=== PATIENT | female | born 1995 | race Two or more races ===

== ENCOUNTER 2019-12-07 11:44 | Emergency (ER) | payer OTHER ==
[~2019-12-07] VITALS: Ht 154.9 cm; Wt 80.7 kg
--- NOTE | 2019-12-07 12:08 | NUR ---
ED Nurse Note: pt presents to ED c/o L hand and wrist pain x 3 days ago at work. pt states that she was trying to catch a heavy object and "heard her wrist crack." pt has full ROM of L wrist, pain is exacerbated by making a closed fist with her hand
[2019-12-07 12:10] VITALS: BP 124/77
[2019-12-07] MEDS ORDERED: TYLENOL EXTRA500 MG ORAL (13:18)
[2019-12-07 13:38] VITALS: BP 128/76
--- NOTE | 2019-12-07 13:38 | NUR ---
ER DISCHARGE NOTE: Patient is cleared to be discharged per ERMD, pt is aox4, on room air, with stable vital signs. pt was given dc and prescription instructions, pt was able to verbalize understanding, pt id band removed. pt is able to ambulate with steady gait. pt took all belongings.
--- NOTE | 2019-12-07 14:14 | Diagnostic Imaging Report ---
EXAM: XR Left Wrist, 2 Views CLINICAL HISTORY: PAIN TECHNIQUE: Frontal and lateral views of the left wrist. COMPARISON: None FINDINGS: Bones/joints: No displaced fracture or dislocation identified. Joint space is maintained. No bony lesion. Soft tissues: Mild dorsal soft tissue swelling. IMPRESSION: No displaced fracture or dislocation identified.
--- NOTE | 2019-12-07 14:14 | Diagnostic Imaging Report ---
EXAM: XR Left Hand Complete, 3 or More Views CLINICAL HISTORY: PAIN TECHNIQUE: Frontal, lateral and oblique views of the left hand. COMPARISON: None FINDINGS: Bones/joints: No displaced fracture or dislocation identified. Joint space is maintained. No bony lesion. Soft tissues: Mild dorsal soft tissue swelling. IMPRESSION: No displaced fracture or dislocation identified.
--- NOTE | 2019-12-08 08:09 | Emergency Room Report ---
History of Present Illness General Chief Complaint: Upper Extremity Injury Source: Patient Present Illness HPI 24-year-old female presents to ED for evaluation. States that she has left hand and wrist pain after lifting a heavy box at work yesterday. States the box was so heavy that the box did fall. Pain is throbbing, 6 out of 10, nonradiating. States there was some swelling and bruising initially to the hand. No other aggravating relieving factors. Denies any other associated symptoms Allergies: Coded Allergies: No Known Allergies (Unverified , 12/07/19) COVID-19 Screening Contact w/high risk pt: No Experienced COVID-19 symptoms?: No COVID-19 Testing performed MOTOR WINDER: No Patient History Past Medical History: none Past Surgical History: none Pertinent Family History: none Social History: Denies: smoking, alcohol use, drug use Last Menstrual Period: 11/11/19 Now: No Immunizations: UTD Reviewed Nursing Documentation: PMH: Agreed; PSxH: Agreed Review of Systems All Other Systems: negative except mentioned in HPI Physical Exam Vital Signs Date Time Temp Pulse Resp B/P (MAP) Pulse Ox O2 Delivery O2 Flow Rate FiO2 12/07/19 11:58 98.2 83 17 124/77 (93) 98 Room Air Sp02 EP Interpretation: reviewed, normal General Appearance: no apparent distress, alert, GCS 15, non-toxic Head: normocephalic, atraumatic Eyes: bilateral eye normal inspection, bilateral eye PERRL ENT: hearing grossly normal, normal pharynx, no angioedema, normal voice Neck: full range of motion, supple/symm/no masses Respiratory: chest non-tender, lungs clear, normal breath sounds, speaking full sentences Cardiovascular #1: regular rate, rhythm, no edema Cardiovascular #2: 2+ carotid (R), 2+ carotid (L), 2+ radial (R), 2+ radial (L), 2+ dorsalis pedis (R), 2+ dorsalis pedis (L) Gastrointestinal: normal bowel sounds, non tender, soft, non-distended, no guarding, no rebound Rectal: deferred Genitourinary: normal inspection, no CVA tenderness Musculoskeletal: back normal, normal range of motion, gait/station normal, tender - Dorsum of left hand Neurologic: alert, motor strength/tone normal, oriented x3, sensory intact, responsive, speech normal Psychiatric: judgement/insight normal, memory normal, mood/affect normal, no suicidal/homicidal ideation Reflexes: 3+ bicep (R), 3+ bicep (L), 3+ tricep (R), 3+ tricep (L), 3+ knee (R), 3+ knee (L) Lymphatic: no adenopathy Procedures Splinting Splinting : Consent: Verbal Pre-Made Type: velcro Pre-Proc Neuro Vasc Exam: normal Post-Proc Neuro Vasc Exam: normal Patient Tolerated: Well Complications: None Medical Decision Making Diagnostic Impression: Primary Impression: Wrist sprain Qualified Codes: S63.502A - Unspecified sprain of left wrist, initial encounter ER Course Hospital Course 24-year-old female presents with left wrist pain and hand pain after lifting heavy box at work Differential diagnoses include: Fracture, dislocation, sprain, contusion Clinical course Patient placed on stretcher. After initial history and physical, I ordered x- rays of left hand and wrist xrays read shows no acute fracture/dislocation. placed in wrist splint Discussed findings with patient. Safe for discharge for close outpatient follow-up. I will provide Ortho referral Diagnosis -wrist sprain Stable and discharged to home with prescription for Tylenol. apply ice, keep elevated. weight bear as tolerated. Followup with PMD. Return to ED if symptoms recur or worsen Other X-Ray Diagnostic Results Other X-Ray Diagnostic Results #1: X-Ray ordered: Left hand # of Views/Limited Vs Complete: 3 View Indication: Pain EP Interpretation: Yes Interpretation: no dislocation, no soft tissue swelling, no fractures Impression: No acute disease Electronically Signed by: Electronically signed by Elan Pantoja MD Other X-Ray Diagnostic Results #2: X-Ray ordered: Left wrist # of Views/Limited Vs Complete: 3 View Indication: Pain EP Interpretation: Yes Interpretation: no dislocation, no soft tissue swelling, no fractures Impression: No acute disease Electronically Signed by: Electronically signed by Elan Pantoja MD Last Vital Signs Date Time Temp Pulse Resp B/P (MAP) Pulse Ox O2 Delivery O2 Flow Rate FiO2 12/07/19 13:38 98.2 78 18 128/76 99 Room Air Status: improved Disposition: HOME, SELF-CARE Condition: Stable Scripts Acetaminophen* (TYLENOL EXTRA STRENGTH*) 500 Mg Tablet 500 MG ORAL Q8H PRN for Prn Headache/Temp > 101, #30 TAB 0 Refills Prov: Elan Pantoja MD 12/07/19 Referrals: NOT CHOSEN [facility]/,REFERRING ([facility] Open 24 hour /7 days a week by Appointment Only [address] [facility] [id number] Departure Forms: Return to Work Return to Work Date: Dec 09, 2019 Work Restrictions: No Heavy Lifting Patient Instructions: Wrist Sprain With [facility] Elan Pantoja MD Dec 08, 2019 08:09
== END 2019-12-07 13:38 | disposition home or self-care (01) ==
LOC: EMR 12:40
DX: S63.502A Unspecified sprain of left wrist, initial encounter (principal); X50.0XXA Overexertion from strenuous movement or load, initial encounter; Y92.9 Unspecified place or not applicable
CPT/HCPCS: 29125; 99284